=== PATIENT | male | born 1940 | race Caucasian/White ===

== ENCOUNTER 2018-01-28 07:13 | Outpatient (CLI) | payer OTHER ==
[2018-02-10] MEDS ORDERED: ENALAPRIL MALEA10 MG PO (09:17)
[2018-02-10] MEDS ORDERED: ASA81 MG PO (09:17)
[2018-02-10] MEDS ORDERED: NEURONTIN800 MG PO (09:17)
== END 2018-01-28 07:19 | disposition home or self-care (01) ==
LOC: LAB 07:13 → RAD 07:13 → LAB 07:19
DX: M48.07 Spinal stenosis, lumbosacral region (principal); M48.02 Spinal stenosis, cervical region; D68.8 Other specified coagulation defects; M54.2 Cervicalgia

== ENCOUNTER → 2018-01-31 07:53 | Outpatient (CLI) | payer OTHER ==
[~2018-01-31 07:53] MED LIST: ASA81 MG PO; ENALAPRIL MALEA10 MG PO; NEURONTIN800 MG PO
== END | disposition home or self-care (01) ==
LOC: EKG 07:53
DX: I10 Essential (primary) hypertension (principal); D68.8 Other specified coagulation defects; M48.07 Spinal stenosis, lumbosacral region

== ENCOUNTER 2018-02-17 07:08 | Day surgery (SDC) | payer OTHER | END 2018-02-17 14:05 | disposition home or self-care (01) | LOC: CIR.AMB 07:08 | DX: M48.062 Spinal stenosis, lumbar region with neurogenic claudication (principal); M99.43 Connective tissue stenosis of neural canal of lumbar region ==

== ENCOUNTER 2018-05-03 08:19 | Outpatient (CLI) | payer OTHER | END 2018-05-03 08:55 | disposition home or self-care (01) | LOC: LAB 08:19 | DX: M47.22 Other spondylosis with radiculopathy, cervical region (principal); Z01.810 Encounter for preprocedural cardiovascular examination; M50.120 Mid-cervical disc disorder, unspecified level ==

== ENCOUNTER 2018-05-19 06:00 | Day surgery (SDC) | payer OTHER ==
[~2018-05-19 06:00] MED LIST changes: +TIZANIDINE HCL2 MG PO
== END 2018-05-19 12:40 | disposition home or self-care (01) ==
LOC: CIR.AMB 06:00
DX: M47.22 Other spondylosis with radiculopathy, cervical region (principal)

== ENCOUNTER → 2018-08-28 07:30 | Outpatient (CLI) | payer OTHER | END | disposition home or self-care (01) | LOC: LAB 07:30 | DX: M48.02 Spinal stenosis, cervical region (principal); M48.07 Spinal stenosis, lumbosacral region; Z01.818 Encounter for other preprocedural examination; E55.9 Vitamin D deficiency, unspecified; D68.8 Other specified coagulation defects; I10 Essential (primary) hypertension ==

== ENCOUNTER 2018-09-08 05:20 | Day surgery (SDC) | payer OTHER | END 2018-09-08 11:05 | disposition home or self-care (01) | LOC: CIR.AMB 05:20 | DX: M50.123 Cervical disc disorder at C6-C7 level with radiculopathy (principal); M48.02 Spinal stenosis, cervical region ==

== ENCOUNTER 2019-08-21 07:18 | Outpatient (CLI) | payer OTHER | END 2019-08-21 08:00 | disposition home or self-care (01) | LOC: NUCLEAR 07:18 | DX: R94.31 Abnormal electrocardiogram [ECG] [EKG] (principal) | CPT/HCPCS: 78452; 93017; A9500; J0153 ==

== ENCOUNTER 2020-03-10 07:25 | Outpatient (CLI) | payer OTHER | END 2020-03-10 07:29 | disposition home or self-care (01) | LOC: RX STUDY 07:25 | PROVIDERS: ATTEND Internal Medicine Gastroenterology | DX: R13.12 Dysphagia, oropharyngeal phase (principal) ==

== ENCOUNTER 2020-04-01 05:46 | Day surgery (SDC) | payer OTHER | END 2020-04-01 09:40 | disposition home or self-care (01) | LOC: AMB-ENDOS 05:46 → CIR.AMB 12:45 | PROVIDERS: ATTEND Surgery | DX: K62.89 Other specified diseases of anus and rectum (principal); K64.8 Other hemorrhoids; Z20.828 Contact with and (suspected) exposure to other viral communicable diseases ==